=== PATIENT | female | born 1980 | race Caucasian/White ===

== ENCOUNTER 2017-04-05 10:59 | Emergency (ER) | payer OTHER ==
[~2017-04-05] VITALS: Ht 172.7 cm; Wt 179.3 kg
[~2017-04-05 10:59] MED LIST: PRENTAB26 PO
[2017-04-05 11:02] VITALS: TEMP 36.4; Ht 172.7 cm; Wt 179.3 kg
[2017-04-05] MEDS ORDERED: IMT100 PO (11:39)
[2017-04-05] MEDS ORDERED: ONDA8TAB62 SL (11:43)
[2017-04-05] MEDS ORDERED: CITA20TA4 PO (11:43)
[2017-04-05] MEDS ORDERED: ONDANSETRON INJ 2 MG/ML 2 ML VIAL IV STA (11:51)
[2017-04-05] MEDS ORDERED: SODIUM CHLORIDE 0.9% 1000ML 1,000 ML IV STA (11:51)
[2017-04-05] MEDS ORDERED: ACETAMINOPHEN 500 MG TAB PO STA (11:51)
[2017-04-05] MEDS ORDERED: MECLIZINE HCL 25 MG TAB PO STA (11:51)
[2017-04-05 12:23] LABS: URINE APPEARANCE CLEAR (CLEAR); URINE BILIRUBIN NEG (NEG); URINE COLOR YELLOW; URINE EPITHELIAL CELL AUTO >30 /lpf (0-5); URINE NITRITE NEG (NEG); URINE SPECIFIC GRAVITY 1.017 (1.000-1.030); UROBILINOGEN NEG (NEG)
[2017-04-05 12:28] LABS: MANUAL MICROSCOPIC REQUIRED? NO; REVIEW REQ? NO; SULFASALICYLIC ACID POS (NEG)
[2017-04-05 12:47] VITALS: O2SAT 95
--- NOTE | 2017-04-05 13:27 | DIAGNOSTIC IMAGING REPORT ---
HEAD CT NONCONTRAST CT DOSE: 614.27 mGy.cm HISTORY: Migraine. EVALUATE ALTERED MENTAL STATUS/WEAKNESS TECHNIQUE: Multiaxial CT images of the head were performed without the use of intravenous contrast. Automated exposure control was utilized for this study. Comparison: None. Findings: Complete opacification of the right maxillary sinus with a 3.3 cm retention cyst or polyp. The mastoid air cells are clear. The calvarium and skull base are intact. The ventricles and sulci are within normal limits. There is no mass, hematoma, midline shift, or acute infarct. Impression: No acute intracranial abnormality. Complete opacification of the right maxillary sinus with a 3.3 cm retention cyst or polyp. Electronically signed by: Ken Reese M.D. 04/05/2017 1:25 PM Dictated Date/Time: 04/05/2017 1:22 PM
[2017-04-05 13:36] LABS: BASO % 0.3 %; BASO ABS # 0.03 K/uL (0-0.2); COMPLETE YES; EOS % 1.2 %; HEMATOCRIT 38.9 % (37-47); IG% 0.4 %; LYMPH % 28.7 %; LYMPH ABS # 2.98 K/uL (1.2-3.4); MEAN CELL VOLUME 83.5 fL (80-100); MEAN CORPUSCULAR HEMOGLOBIN 26.2 pg (25-34); MEAN CORPUSCULAR HGB CONC 31.4 g/dl (32-36); MEAN PLATELET VOLUME 8.7 fL (7.4-10.4); MONO % 5.4 %; PLATELET COUNT 285 K/uL (130-400); RED BLOOD COUNT 4.66 M/uL (4.2-5.4); WHITE BLOOD COUNT 10.37 K/uL (4.8-10.8)
[2017-04-05 13:44] LABS: PROTHROMBIN TIME (PATIENT) 10.6 SECONDS (9.0-12.0)
[2017-04-05 13:52] LABS: ALT/SGPT 27 U/L (12-78); BLOOD UREA NITROGEN 8 mg/dl (7-18); BUN/CREATININE RATIO 13.2 (10-20); CALCIUM 8.8 mg/dl (8.5-10.1); CARBON DIOXIDE 30 mmol/L (21-32); CHLORIDE 104 mmol/L (98-107); CREATININE 0.59 mg/dl (0.60-1.20); GLUCOSE 77 mg/dl (70-99); MAGNESIUM 1.9 mg/dl (1.8-2.4); SODIUM 139 mmol/L (136-145)
[2017-04-05 14:00] LABS: PREG INTERNAL NEGATIVE QC NEG CLEAR BACKGROUND; PREG INTERNAL POSITIVE QC POS CONTROL LINE
[2017-04-05 14:03] LABS: ALKALINE PHOSPHATASE 94 U/L (45-117); AST/SGOT 15 U/L (15-37)
--- NOTE | 2017-04-05 14:04 | DIAGNOSTIC IMAGING REPORT ---
TWO VIEW CHEST CLINICAL HISTORY: Headache. Generalized weakness.. FINDINGS: PA and lateral chest radiographs are compared to study dated 02/02/2008. The examination is degraded by large body habitus. The cardiomediastinal silhouette is unremarkable. Calcified hilar lymph nodes are observed. A calcified granuloma is noted in the right midlung. The lungs and pleural spaces are otherwise clear. There is no pneumothorax. The bony thorax appears intact. IMPRESSION: No active disease in the chest. Electronically signed by: Reji Celestin M.D. 04/05/2017 2:02 PM Dictated Date/Time: 04/05/2017 2:02 PM
[2017-04-05] MEDS ORDERED: ANT25 PO (14:30)
[2017-04-05 14:44] VITALS: BP 139/100; PULSE 82; O2SAT 96
--- NOTE | 2017-04-05 17:11 | EMERGENCY ROOM VISIT NOTE ---
History Report prepared by Sylvie: Carmen Deal Under the Supervision of: Dr. Kelton Quinn D.O. First contact with patient: 11:46 Chief Complaint: HEADACHE Stated Complaint: MIGRAINE, BILATERAL CALF PAIN History of Present Illness The patient is a 36 year old female who presents to the Emergency Room with complaints of an episode of a headache starting two days ago. She describes that pain as achy. The patient reports that she came to the ED today because she woke up with tingling in her calves down to her toes in both legs. She also notes bruising on her legs with no explanation. The patient reports that she currently just started experiencing the room spinning. The patient denies ever having this before. The patient notes that she is having leg pain. She denies shortness of breath and abdominal pain. The patient notes her LNMP was two weeks ago. Source of History: patient Onset: two days ago Position: head Quality: ache Timing: other (episode) Associated Symptoms: No SOB, No abdominal pain Note: The patient complains of leg pain, tingling down her legs, bruising down her legs, and the room spinning. Review of Systems See HPI for pertinent positives & negatives. A total of 10 systems reviewed and were otherwise negative. Past Medical & Surgical Medical Problems: (1) Polycystic ovaries Surgical Problems: (1) Hx of tonsillectomy Family History Cancer Diabetes mellitus Hypertension Lung disease Social History Smoking Status: Current Some Day Smoker Alcohol Use: occasionally Marital Status: Housing Status: lives with significant other Occupation Status: employed Current/Historical Medications Scheduled Citalopram Hydrobromide (Citalopram Hydrobromide), 1 TAB PO DAILY Meclizine HCl (Meclizine HCl), 25 MG PO Q8 Sumatriptan Succinate (Imitrex), 100 MG PO PRN Scheduled PRN Ondansetron Odt (Zofran Odt), 8 MG SL Q6H PRN for Nausea Allergies Coded Allergies: No Known Allergies (Verified , 04/05/17) Physical Exam Vital Signs Date Time Temp Pulse Resp B/P (MAP) Pulse Ox O2 Delivery O2 Flow Rate FiO2 04/05/17 14:44 82 18 139/100 96 04/05/17 13:11 90 16 161/116 98 Room Air 04/05/17 12:47 95 Room Air 04/05/17 12:17 79 04/05/17 11:02 36.4 95 22 160/108 96 Room Air Physical Exam GENERAL: Patient is awake, alert, and in no acute distress. Patient is resting comfortably and showing no signs of anxiety EYES: The conjunctivae are clear. The pupils are round and reactive. EARS, NOSE, MOUTH AND THROAT: The nose is without any evidence of any deformity. Mucous membranes are moist tongue is midline NECK: The neck is nontender and supple. RESPIRATORY: Normal respiratory effort is noted there is no evidence of wheezing rhonchi or rales CARDIOVASCULAR: Regular rate and rhythm noted there no murmurs rubs or gallops normal S1 normal S2 GASTROINTESTINAL: The abdomen is soft. Bowel sounds are present in all quadrants. Abdomen is nontender MUSCULOSKELETAL/EXTREMITIES: There is no evidence of gross deformity full range of motion is noted in the hips and shoulders SKIN: There is no obvious evidence of any rash. There are no petechiae, pallor or cyanosis noted. NEUROLOGIC: Patient is awake alert and oriented x3 strength is symmetric patellar reflexes are 2+ bilaterally Medical Decision & Procedures ER Provider Diagnostic Interpretation: Radiology results as stated below per my review and radiologist interpretation: HEAD CT NONCONTRAST CT DOSE: 614.27 mGy.cm HISTORY: Migraine. EVALUATE ALTERED MENTAL STATUS/WEAKNESS TECHNIQUE: Multiaxial CT images of the head were performed without the use of intravenous contrast. Automated exposure control was utilized for this study. Comparison: None. Findings: Complete opacification of the right maxillary sinus with a 3.3 cm retention cyst or polyp. The mastoid air cells are clear. The calvarium and skull base are intact. The ventricles and sulci are within normal limits. There is no mass, hematoma, midline shift, or acute infarct. Impression: No acute intracranial abnormality. Complete opacification of the right maxillary sinus with a 3.3 cm retention cyst or polyp. Electronically signed by: Ken Reese M.D. 04/05/2017 1:25 PM Dictated Date/Time: 04/05/2017 1:22 PM TWO VIEW CHEST CLINICAL HISTORY: Headache. Generalized weakness.. FINDINGS: PA and lateral chest radiographs are compared to study dated 02/02/2008. The examination is degraded by large body habitus. The cardiomediastinal silhouette is unremarkable. Calcified hilar lymph nodes are observed. A calcified granuloma is noted in the right midlung. The lungs and pleural spaces are otherwise clear. There is no pneumothorax. The bony thorax appears intact. IMPRESSION: No active disease in the chest. Electronically signed by: Reji Celestin M.D. 04/05/2017 2:02 PM Dictated Date/Time: 04/05/2017 2:02 PM Laboratory Results 04/05/17 13:27 Red Blood Count 4.66, Mean Corpuscular Volume 83.5, Mean Corpuscular Hemoglobin 26.2, Mean Corpuscular Hemoglobin Concent 31.4, Mean Platelet Volume 8.7, Neutrophils (%) (Auto) 64.0, Lymphocytes (%) (Auto) 28.7, Monocytes (%) (Auto) 5.4, Eosinophils (%) (Auto) 1.2, Basophils (%) (Auto) 0.3, Neutrophils # (Auto) 6.64, Lymphocytes # (Auto) 2.98, Monocytes # (Auto) 0.56, Eosinophils # (Auto) 0.12, Basophils # (Auto) 0.03 04/05/17 13:27 Test 04/05/17 11:10 04/05/17 13:27 04/05/17 13:31 Urine Color YELLOW Urine Appearance CLEAR (CLEAR) Urine pH 8.0 (4.5-7.5) Urine Specific [place] 1.017 (1.000-1.030) Urine Protein 1+ (NEG) Urine Glucose (UA) NEG (NEG) Urine Ketones NEG (NEG) Urine Occult Blood NEG (NEG) Urine Nitrite NEG (NEG) Urine Bilirubin NEG (NEG) Urine Urobilinogen NEG (NEG) Urine Leukocyte Esterase NEG (NEG) Urine WBC (Auto) 1-5 /hpf (0-5) Urine RBC (Auto) 0-4 /hpf (0-4) Urine Hyaline Casts (Auto) 0 /lpf (0-5) Urine Epithelial Cells (Auto) >30 /lpf (0-5) Urine Bacteria (Auto) NEG (NEG) White Blood Count 10.37 K/uL (4.8-10.8) Red Blood Count 4.66 M/uL (4.2-5.4) Hemoglobin 12.2 g/dL (12.0-16.0) Hematocrit 38.9 % (37-47) Mean Corpuscular Volume 83.5 fL (80-100) Mean Corpuscular Hemoglobin 26.2 pg (25-34) Mean Corpuscular Hemoglobin Concent 31.4 g/dl (32-36) Platelet Count 285 K/uL (130-400) Mean Platelet Volume 8.7 fL (7.4-10.4) Neutrophils (%) (Auto) 64.0 % Lymphocytes (%) (Auto) 28.7 % Monocytes (%) (Auto) 5.4 % Eosinophils (%) (Auto) 1.2 % Basophils (%) (Auto) 0.3 % Neutrophils # (Auto) 6.64 K/uL (1.4-6.5) Lymphocytes # (Auto) 2.98 K/uL (1.2-3.4) Monocytes # (Auto) 0.56 K/uL (0.11-0.59) Eosinophils # (Auto) 0.12 K/uL (0-0.5) Basophils # (Auto) 0.03 K/uL (0-0.2) RDW Standard Deviation 42.7 fL (36.4-46.3) RDW Coefficient of Variation 14.1 % (11.5-14.5) Immature Granulocyte % (Auto) 0.4 % Immature Granulocyte # (Auto) 0.04 K/uL (0.00-0.02) Prothrombin Time 10.6 SECONDS (9.0-12.0) Prothromb Time International Ratio 1.0 (0.9-1.1) Activated Partial Thromboplast Time 26.2 SECONDS (21.0-31.0) Partial Thromboplastin Ratio 1.0 Anion Gap 5.0 mmol/L (3-11) Est Creatinine Clear Calc Drug Dose 224.6 ml/min Estimated GFR () 134.8 Estimated GFR (Non- 116.3 BUN/Creatinine Ratio 13.2 (10-20) Calcium Level 8.8 mg/dl (8.5-10.1) Magnesium Level 1.9 mg/dl (1.8-2.4) Total Bilirubin 0.4 mg/dl (0.2-1) Direct Bilirubin 0.1 mg/dl (0-0.2) Aspartate Amino Transf (AST/SGOT) 15 U/L (15-37) Alanine Aminotransferase (ALT/SGPT) 27 U/L (12-78) Alkaline Phosphatase 94 U/L (45-117) Troponin I < 0.015 ng/ml (0-0.045) Total Protein 7.3 gm/dl (6.4-8.2) Albumin 3.2 gm/dl (3.4-5.0) Thyroid Stimulating Hormone (TSH) 2.420 uIu/ml (0.300-4.500) Human Chorionic Gonadotropin, Qual NEG (NEG) Bedside D-Dimer 413 ng/mlFEU (0-450) Laboratory results per my review. Medications Administered Medications (Trade) Dose Ordered Sig/Marques Route Start Time Stop Time Status Last Admin Dose Admin Ondansetron HCl (Zofran Inj) 4 mg NOW STAT IV 04/05/17 11:51 04/05/17 11:54 DC 04/05/17 13:07 4 MG Sodium Chloride 1,000 ml @ 999 mls/hr Q1H1M STAT IV 04/05/17 11:51 04/05/17 12:51 DC 04/05/17 13:43 999 MLS/HR Meclizine HCl (Antivert Tab) 25 mg NOW STAT PO 04/05/17 11:51 04/05/17 11:54 DC 04/05/17 13:07 25 MG Acetaminophen (Tylenol Tab) 1,000 mg NOW STAT PO 04/05/17 11:51 04/05/17 11:54 DC 04/05/17 13:06 1,000 MG ECG Indication: other (tingling in legs) Rate (beats per minute): 83 Rhythm: normal sinus Findings: no ectopy, other (no acute ST segment abnormalities) Comparison ECG Date: 02/02/2008 Change: no significant change ED Course 1146: The patient was evaluated in room B11. A complete history and physical examination were performed. 1151: Ordered Tylenol Tab 1000 mg PO, Antivert Tab 25 mg PO, NSS 1000 ml @ 999 mls/hr IV, Zofran Inj 4 mg IV. 1445: Upon reevaluation, the patient is resting comfortably. I discussed the results and treatment plan with her. The patient verbalized agreement of the treatment plan. The patient was discharged home. Medical Decision Medication Reconciliation: I attest that I have personally reviewed the patient' s current medications list. Patient was found to have a slightly elevated blood pressure due to circumstances. I do not believe that the patient requires hypertension monitoring. Differential diagnosis: Etiologies such as benign positional vertigo, dehydration, hypovolemia, anemia, tumor, infection, hypoglycemia, electrolyte abnormalities, cardiac sources, intracerebral event, toxicologic, neurologic, as well as others were entertained. The patient is a 36-year-old female who presented to the emergency department for an evaluation of dizziness. The patient had multiple complaints including headache as well as dizziness. She states symptoms are worsened with movement but she was very vague. She had no focal neurologic deficits. She had no meningismus or fever. She also complained of lower extremity pain. The patient was treated with IV fluids and IV antiemetics. She was also treated with meclizine. She was feeling much better on subsequent reevaluation. She was encouraged to rest and avoid any strenuous activity. I discussed the patient's laboratory and radiographic studies with her. She was encouraged to return to the emergency department immediately if symptoms change worsen or the need arises. Otherwise she was encouraged to follow-up with her primary care physician as he is possible. Impression Primary Impression: Headache Additional Impression: Migraine Scribe Attestation The scribe's documentation has been prepared under my direction and personally reviewed by me in its entirety. I confirm that the note above accurately reflects all work, treatment, procedures, and medical decision making performed by me. Departure Information Dispostion Home / Self-Care Prescriptions Meclizine HCl (Meclizine HCl) 25 Mg Tab 25 MG PO Q8 for Dizziness or Vertigo, #25 TABS Prov: Kelton Quinn, DO 04/05/17 Referrals Caprice Rivera M.D. (MEDICAL) (PCP) Forms HOME CARE DOCUMENTATION FORM, IMPORTANT VISIT INFORMATION Patient Instructions My [facility] Additional Instructions Call your family to schedule a follow-up appointment. Rest and avoid any strenuous activity. Continue all medications as prescribed. You may require a referral to an ear nose and throat physician if symptoms do not improve. Continue using Motrin and Tylenol as directed for pain. Problem Qualifiers Primary Impression: Headache Headache type: unspecified Headache chronicity pattern: unspecified pattern Intractability: not intractable Qualified Codes: R51 - Headache Additional Impression: Migraine Migraine type: unspecified Status migrainosus presence: without status migrainosus Intractability: not intractable Qualified Codes: G43.909 - Migraine, unspecified, not intractable, without status migrainosus
== END 2017-04-05 14:45 | disposition home or self-care (01) ==
LOC: C.EDB 11:01
DX: G43.909 Migraine, unspecified, not intractable, without status migrainosus (principal); M79.604 Pain in right leg; M79.605 Pain in left leg; E28.2 Polycystic ovarian syndrome; F17.200 Nicotine dependence, unspecified, uncomplicated; Z83.3 Family history of diabetes mellitus; Z82.49 Family history of ischemic heart disease and other diseases of the circulatory system

== ENCOUNTER 2017-06-08 21:50 | Emergency (ER) | payer OTHER ==
[~2017-06-08] VITALS: Ht 172.7 cm; Wt 167.0 kg
[~2017-06-08 21:50] MED LIST changes: +ANT25 PO; +CITA20TA4 PO; +IMT100 PO; +ONDA8TAB62 SL; -PRENTAB26 PO
[2017-06-08 21:56] VITALS: TEMP 36.5; Ht 172.7 cm; Wt 167.0 kg
[2017-06-08] MEDS ORDERED: MAGN400T6 PO (22:06)
[2017-06-08] MEDS ORDERED: TOPI25TA99 PO (22:06)
[2017-06-08] MEDS ORDERED: VITB2100 PO (22:06)
[2017-06-08 22:44] LABS: URINE APPEARANCE TURBID (CLEAR); URINE BILIRUBIN NEG (NEG); URINE COLOR DK YELLOW; URINE EPITHELIAL CELL AUTO >30 /lpf (0-5); URINE NITRITE NEG (NEG); URINE PH 5.5 (4.5-7.5); URINE SPECIFIC GRAVITY 1.031 (1.000-1.030); UROBILINOGEN NEG (NEG); ZZUR CULT IF INDIC CLEAN CATCH YES
[2017-06-08 22:46] LABS: MANUAL MICROSCOPIC REQUIRED? NO; REVIEW REQ? YES
[2017-06-08 23:16] LABS: BASO % 0.3 %; BASO ABS # 0.03 K/uL (0-0.2); COMPLETE YES; EOS % 1.3 %; HEMATOCRIT 39.5 % (37-47); IG% 0.7 %; LYMPH % 35.7 %; LYMPH ABS # 3.96 K/uL (1.2-3.4); MEAN CELL VOLUME 84.9 fL (80-100); MEAN CORPUSCULAR HEMOGLOBIN 26.7 pg (25-34); MEAN CORPUSCULAR HGB CONC 31.4 g/dl (32-36); MEAN PLATELET VOLUME 9.3 fL (7.4-10.4); PLATELET COUNT 318 K/uL (130-400); RED BLOOD COUNT 4.65 M/uL (4.2-5.4)
[2017-06-08 23:44] LABS: ALT/SGPT 35 U/L (12-78); AST/SGOT 17 U/L (15-37); BLOOD UREA NITROGEN 11 mg/dl (7-18); BUN/CREATININE RATIO 15.4 (10-20); CALCIUM 9.2 mg/dl (8.5-10.1); CARBON DIOXIDE 27 mmol/L (21-32); CHLORIDE 105 mmol/L (98-107); CREATININE 0.73 mg/dl (0.60-1.20); GLUCOSE 86 mg/dl (70-99); MAGNESIUM 1.9 mg/dl (1.8-2.4); POTASSIUM 3.6 mmol/L (3.5-5.1); SODIUM 139 mmol/L (136-145)
[2017-06-08 23:55] LABS: ALKALINE PHOSPHATASE 100 U/L (45-117)
[2017-06-08 23:58] LABS: PREG INTERNAL NEGATIVE QC NEG CLEAR BACKGROUND; PREG INTERNAL POSITIVE QC POS CONTROL LINE
--- NOTE | 2017-06-09 00:44 | EMERGENCY ROOM VISIT NOTE ---
History First contact with patient: 22:01 Chief Complaint: SWELLING TO EXTREMITY Stated Complaint: SWELLING IN LEFT FOOT AND ANKLE AND BOTH LOWER LEG History of Present Illness The patient is a 36 year old female who presents to the Emergency Room with complaints of bilateral lower leg pain and swelling for the past day. Patient stands a lot at work. No history DVT or PE. She occasionally smokes. No control. No recent travel. Patient denies chest pain, dyspnea, fever, chills, numbness, tingling, abdominal pain, weakness. No history of CHF. Review of Systems See HPI for pertinent positives & negatives. A total of 10 systems reviewed and were otherwise negative. Past Medical/Surgical History Medical Problems: (1) Polycystic ovaries Surgical Problems: (1) Hx of tonsillectomy Family History Cancer Diabetes mellitus Hypertension Lung disease Social History Smoking Status: Current Some Day Smoker Alcohol Use: occasionally Marital Status: Housing Status: lives with significant other Occupation Status: employed Current/Historical Medications Scheduled Citalopram Hydrobromide (Citalopram Hydrobromide), 1 TAB PO DAILY Magnesium Oxide (Mag-Ox), 400 MG PO HS Meclizine HCl (Meclizine HCl), 25 MG PO Q8 Riboflavin (Vitamin B-2), 400 MG PO QAM Sumatriptan Succinate (Imitrex), 100 MG PO PRN Topiramate (Topamax ), 50 MG PO HS Scheduled PRN Ondansetron Odt (Zofran Odt), 8 MG SL Q6H PRN for Nausea Physical Exam Vital Signs Date Time Temp Pulse Resp B/P (MAP) Pulse Ox O2 Delivery O2 Flow Rate FiO2 06/08/17 21:56 36.5 108 18 163/114 97 Room Air Physical Exam VITALS: Vitals are noted on the nurse's note and reviewed by myself. Vital signs hypertensive. GENERAL: Pleasant female, in no acute distress, nondiaphoretic, well-developed well-nourished. SKIN: The skin was without rashes, erythema, edema, or bruising. There is no tenting of the skin. Capillary reflex less than 2 seconds. HEAD: Normocephalic atraumatic. EARS: External auditory canals clear, tympanic membranes pearly stahl without erythema or effusion bilaterally. EYES: Pupils equal round and reactive to light and accommodation. Conjunctivae without injection, sclerae without icterus. Extraocular movements intact. NOSE: Patent, turbinates without inflammation or discharge. MOUTH: Mucous membranes moist. Pharynx without erythema or exudate. Uvula midline. Airway patent. Tongue does not deviate. NECK: Supple without nuchal rigidity. No lymphadenopathy. No thyromegaly. Cervical spine is nontender. No JVD. HEART: Regular rate and rhythm without murmurs gallops or rubs. LUNGS: Clear to auscultation bilaterally without wheezes, rales or rhonchi. No dullness to percussion. No retractions or accessory muscle use. ABDOMEN: Positive bowel sounds x 4. Normal tympanic percussion. Soft, protuberant, obese, nontender, without masses or organomegaly. Lee sign negative. No guarding or rebound tenderness. MUSCULOSKELETAL: No muscle atrophy, erythema, noted. +1 pitting edema up to the ankles bilaterally NEURO: Patient was alert and oriented to person place and time. Normal sensation to light and sharp touch. No focal neurological deficits. Medical Decision & Procedures Laboratory Results 06/08/17 23:00 Red Blood Count 4.65, Mean Corpuscular Volume 84.9, Mean Corpuscular Hemoglobin 26.7, Mean Corpuscular Hemoglobin Concent 31.4, Mean Platelet Volume 9.3, Neutrophils (%) (Auto) 55.0, Lymphocytes (%) (Auto) 35.7, Monocytes (%) (Auto) 7.0, Eosinophils (%) (Auto) 1.3, Basophils (%) (Auto) 0.3, Neutrophils # (Auto) 6.11, Lymphocytes # (Auto) 3.96, Monocytes # (Auto) 0.78, Eosinophils # (Auto) 0.14, Basophils # (Auto) 0.03 06/08/17 23:00 Test 06/08/17 22:30 06/08/17 23:00 Urine Color DK YELLOW Urine Appearance TURBID (CLEAR) Urine pH 5.5 (4.5-7.5) Urine Specific [place] 1.031 (1.000-1.030) Urine Protein 1+ (NEG) Urine Glucose (UA) NEG (NEG) Urine Ketones NEG (NEG) Urine Occult Blood NEG (NEG) Urine Nitrite NEG (NEG) Urine Bilirubin NEG (NEG) Urine Urobilinogen NEG (NEG) Urine Leukocyte Esterase NEG (NEG) Urine WBC (Auto) 10-30 /hpf (0-5) Urine RBC (Auto) 0-4 /hpf (0-4) Urine Hyaline Casts (Auto) 10-30 /lpf (0-5) Urine Epithelial Cells (Auto) >30 /lpf (0-5) Urine Bacteria (Auto) 3+ (NEG) Urine Crystals CALCIUM OXALATE (NONE Urine Pathogenic Casts /lpf (0) Urine Yeast (Auto) (NONE PRSENT) White Blood Count 11.10 K/uL (4.8-10.8) Red Blood Count 4.65 M/uL (4.2-5.4) Hemoglobin 12.4 g/dL (12.0-16.0) Hematocrit 39.5 % (37-47) Mean Corpuscular Volume 84.9 fL (80-100) Mean Corpuscular Hemoglobin 26.7 pg (25-34) Mean Corpuscular Hemoglobin Concent 31.4 g/dl (32-36) Platelet Count 318 K/uL (130-400) Mean Platelet Volume 9.3 fL (7.4-10.4) Neutrophils (%) (Auto) 55.0 % Lymphocytes (%) (Auto) 35.7 % Monocytes (%) (Auto) 7.0 % Eosinophils (%) (Auto) 1.3 % Basophils (%) (Auto) 0.3 % Neutrophils # (Auto) 6.11 K/uL (1.4-6.5) Lymphocytes # (Auto) 3.96 K/uL (1.2-3.4) Monocytes # (Auto) 0.78 K/uL (0.11-0.59) Eosinophils # (Auto) 0.14 K/uL (0-0.5) Basophils # (Auto) 0.03 K/uL (0-0.2) RDW Standard Deviation 45.8 fL (36.4-46.3) RDW Coefficient of Variation 14.9 % (11.5-14.5) Immature Granulocyte % (Auto) 0.7 % Immature Granulocyte # (Auto) 0.08 K/uL (0.00-0.02) Anion Gap 7.0 mmol/L (3-11) Est Creatinine Clear Calc Drug Dose 173.4 ml/min Estimated GFR () 121.1 Estimated GFR (Non- 104.5 BUN/Creatinine Ratio 15.4 (10-20) Calcium Level 9.2 mg/dl (8.5-10.1) Magnesium Level 1.9 mg/dl (1.8-2.4) Total Bilirubin 0.2 mg/dl (0.2-1) Direct Bilirubin < 0.1 mg/dl (0-0.2) Aspartate Amino Transf (AST/SGOT) 17 U/L (15-37) Alanine Aminotransferase (ALT/SGPT) 35 U/L (12-78) Alkaline Phosphatase 100 U/L (45-117) Total Protein 8.1 gm/dl (6.4-8.2) Albumin 3.7 gm/dl (3.4-5.0) Thyroid Stimulating Hormone (TSH) 4.440 uIu/ml (0.300-4.500) Human Chorionic Gonadotropin, Qual NEG (NEG) ED Course Prior records reviewed and summarized above. Triage Nursing notes reviewed. Additional history obtained from the family. The patient's history was concerning for swelling and pain in the legs. Differential diagnosis: Etiologies such as venous insufficiency, DVT, musculoskeletal, infection, joint effusion, trauma, lymphedema, idiopathic, CHF, as well as others were entertained.. Physical examination: The physical examination revealed no signs of infection. Neurovascularly intact. ER treatment provided: Hiren hose On reassessment the patient felt better. Diagnostics interpreted by me: The labs revealed stable H&H. Mild leukocytosis. Imaging studies: Negative for DVT on ultrasound This appears to be consistent with leg swelling most likely from venous insufficiency. Patient was advised to wear HIREN hose when up and about. She is advised follow-up family care in a few days or here in the ER sooner for severe pain, numbness, tingling, worsening signs or symptoms or as needed. No DVT on ultrasound. She was well-appearing. She was neurovascularly and neurologically intact. By the evaluation outlined above emergent etiologies such as DVT, septic joint, trauma, infection, CHF, as well as others were deemed relatively unlikely. The pt informed about the findings as listed above. All questions were answered and pleased with the treatment. Return instructions were outlined and the patient was discharged in stable condition. Case reviewed with my attending. Referral: The patient was referred back to their primary care physician for follow-up in 2 to 3 days for a recheck of the current condition. Medical Decision As above Medication Reconcilliation Current Medication List: was personally reviewed by me Blood Pressure Screening Patient's blood pressure: Elevated blood pressure Blood pressure disposition: Elevated BP felt to be situational Impression Primary Impression: Bilateral leg edema Departure Information Dispostion Home / Self-Care Condition GOOD Referrals Caprice Rivera M.D. (MEDICAL) (PCP) Patient Instructions My [facility] Additional Instructions Wear HIREN hose throughout the day. Rest and drink plenty of fluids as tolerated. Continue current medications. Avoid strenuous activities and anything that worsens your pain. Resume normal activities once your symptoms resolve. Return to the ER immediately for numbness, tingling, abdominal pain, vomiting, fevers, chest pains, difficulty breathing, worsening of your condition, or as needed. Follow up with your primary physician in 2-3 days for a recheck of your current condition.
[2017-06-09 00:45] VITALS: PULSE 95; O2SAT 95
[2017-06-09 00:53] VITALS: BP 135/75
--- NOTE | 2017-06-09 04:58 | DIAGNOSTIC IMAGING REPORT ---
VENOUS DOPPLER LWR EXT BILA CLINICAL HISTORY: 36 years-old Female presenting with leg swelling, ? DVT. TECHNIQUE: Real-time grayscale and color and spectral Doppler ultrasound imaging of the veins of the bilateral lower extremities was performed. Compression and augmentation were also utilized. COMPARISON: None. FINDINGS: Right: Common femoral vein: Patent. Femoral vein: Patent. Greater saphenous vein: Patent. Popliteal vein: Patent. Calf veins: Limited visualization. Left: Common femoral vein: Patent. Femoral vein: Patent. Greater saphenous vein: Patent. Popliteal vein: Patent. Calf veins: Limited visualization. Other: None. IMPRESSION: No evidence of deep venous thrombosis. Electronically signed by: Marcel Maddox M.D. 06/09/2017 4:57 AM Dictated Date/Time: 06/09/2017 4:56 AM
== END 2017-06-09 00:54 | disposition home or self-care (01) ==
LOC: C.EDB 21:52 → C.EDC 06-09 00:54
DX: R60.0 Localized edema (principal); E28.2 Polycystic ovarian syndrome; F17.200 Nicotine dependence, unspecified, uncomplicated; Z90.89 Acquired absence of other organs; Z83.3 Family history of diabetes mellitus; Z82.49 Family history of ischemic heart disease and other diseases of the circulatory system